=== PATIENT | male | born 1970 | race Caucasian/White ===

== ENCOUNTER → 2016-04-16 | Outpatient (CLI) | payer OTHER ==
[2016-04-16 11:03] LABS: MEAN CORPUSCULAR HEMOGLOBIN 30.4 pg (27.0-33.0); MEAN CORPUSCULAR HGB CONC 32.4 g/dl (32.0-36.5); MEAN CORPUSCULAR VOLUME 93.8 fl (80.0-96.0); PLATELET COUNT, AUTOMATED 270 k/mm3 (150-450); RED CELL DISTRIBUTION WIDTH 12.8 % (11.5-14.5); WHITE BLOOD COUNT 10.9 K/mm3 (4.0-10.0)
[2016-04-16 11:12] LABS: ALBUMIN 3.8 GM/DL (3.2-5.2); ALBUMIN/GLOBULIN RATIO 1.31 (1.00-1.93); ALKALINE PHOSPHATASE 112 U/L (45-117); ALT/SGPT 27 U/L (12-78); ANION GAP 8 MEQ/L (8-16); AST/SGOT 23 U/L (15-37); BILIRUBIN,TOTAL 0.4 MG/DL (0.2-1.0); BLOOD UREA NITROGEN 18 MG/DL (7-18); CALCIUM LEVEL 8.4 MG/DL (8.5-10.1); CARBON DIOXIDE LEVEL 24 MEQ/L (21-32); CHLORIDE LEVEL 106 MEQ/L (98-107); CREATININE FOR GFR 1.17 MG/DL (0.70-1.30); GLOMERULAR FILTRATION RATE > 60.0 (>60); GLUCOSE, FASTING 86 MG/DL (70-105); POTASSIUM SERUM 4.7 MEQ/L (3.5-5.1); SODIUM LEVEL 138 MEQ/L (136-145); TOTAL PROTEIN 6.7 GM/DL (6.4-8.2)
[2016-04-16 11:37] LABS: ERYTHROCYTE SEDIMENTATION RATE 7 mm/hr (0-15)
[2016-04-16 11:40] LABS: EOSINOPHILS 1 % (0-5)
--- NOTE | 2016-04-16 14:37 | REP ---
AP supine KUB 04/16/2016 Indication: generalized abdominal pain Comparison: None Findings: Two supine KUBs were obtained to include the abdomen and entire pelvis and field of view . There is a large amount of diffuse retained colonic stool with mild sparing of the rectosigmoid colon. 4 mm calculus is seen superior to the left L3 transverse process. There are two small left lower pelvic calculi. These could represent phleboliths or possibly ureteral calcifications air. The bones are normal in appearance Impression: Large amount of retained stool/constipation throughout the colon with some mild sparing of the rectosigmoid colon. Three small calcifications with in the left side of the abdomen and pelvis. These are nonspecific and may represent phleboliths, vascular or ureteral calcifications. Clinical follow-up recommended. Signed by Angie Nair MD 04/16/2016 09:24 A
== END ==
LOC: M WUC 08:55
PROVIDERS: ATTEND Physician Assistant
DX: R10.84 Generalized abdominal pain (principal)

== ENCOUNTER → 2016-04-16 | Outpatient (REF) | payer OTHER | LOC: M LAB REF 12:33 | PROVIDERS: ATTEND Physician Assistant | DX: R10.84 Generalized abdominal pain (principal) ==

== ENCOUNTER → 2016-04-16 | Outpatient (CLI) | payer OTHER ==
[~2016-04-16] MED LIST: GASTROGRAFIN SOLUTION 30ML (Q9963) As Ordered ONE; ISOVUE-370 76% 100ML VIAL (Q9967) As Ordered ONE
--- NOTE | 2016-04-16 14:42 | REP ---
CT abdomen pelvis on 06/[address] abdomen without IV contrast, CT abdomen pelvis following IV and oral contrast administration Technique: After drinking two cups of oral contrast each containing 10 ml gastrographin in 290 ml water, 3 mm spiral axial sections were performed of the abdomen. Following IV injection L Isovue 370 mg/ml, 3 mm spiral axial sections performed through abdomen and pelvis Findings: Small amount of dependent atelectasis in lung bases bilaterally. Liver, spleen, pancreas, gallbladder, adrenal glands are normal. There is mild left hydronephrosis with proximal hydroureter secondary to an obstructing 6 mm calculus within the left ureter at the level of the mid body of L3. There is minimal left perinephric stranding and minimally delayed left nephrogram. There is a 4 mm cyst in lateral mid pole left kidney. Kidneys are without hydro nephrosis. Stomach, small bowel, terminal ileum, and appendix are normal. Abdominal aorta is of normal course and caliber. There is no retroperitoneal adenopathy. Bladder is contracted. Prostate is normal. Focal area of mild mural thickening and narrowing is seen within the proximal descending colon as seen on image 4 6-54, series 301. There is moderate retained colonic stool. There is no free air or ascites Impression: 1. Mild left hydronephrosis and proximal left hydroureter secondary to an obstructing 6 mm calculus within the left ureter at the level of the mid body of L3. 2. Focal segmental area of mural thickening and narrowing within the descending colon may be secondary to spasm and less likely fixed narrowing. Consider follow-up colonoscopy in further evaluation Signed by Angie Nair MD 04/16/2016 01:03 P
== END ==
LOC: M RAD 10:44
PROVIDERS: ATTEND Physician Assistant
DX: N13.1 Hydronephrosis with ureteral stricture, not elsewhere classified (principal)
CPT/HCPCS: 74178; Q9963; Q9967

== ENCOUNTER → 2016-04-25 | Outpatient (REF) | payer OTHER | LOC: M SMT 12:58 | PROVIDERS: ATTEND Nurse Practitioner Family | DX: N20.1 Calculus of ureter (principal) ==

== ENCOUNTER → 2016-05-21 | Outpatient (CLI) | payer OTHER ==
[2016-05-21 13:51] LABS: CALCIUM LEVEL 8.7 MG/DL (8.5-10.1); CREATININE FOR GFR 1.65 MG/DL (0.70-1.30); POTASSIUM SERUM 4.9 MEQ/L (3.5-5.1)
[2016-05-21 14:05] LABS: INR 0.97
[2016-05-21 14:14] LABS: MEAN CORPUSCULAR HEMOGLOBIN 30.2 pg (27.0-33.0); MEAN CORPUSCULAR HGB CONC 32.3 g/dl (32.0-36.5); MEAN CORPUSCULAR VOLUME 93.4 fl (80.0-96.0); RED CELL DISTRIBUTION WIDTH 12.9 % (11.5-14.5); WHITE BLOOD COUNT 9.6 K/mm3 (4.0-10.0)
== END ==
LOC: M SMT 09:07
PROVIDERS: ATTEND Nurse Practitioner Family
DX: N20.0 Calculus of kidney (principal)

== ENCOUNTER → 2016-05-27 | Day surgery (SDC) | payer OTHER ==
[~2016-05-27] VITALS: Ht 182.9 cm; Wt 75.7 kg
[~2016-05-27] MED LIST changes: +CALC600T7 PO; +CONRAY-60 60% 50ML VIAL (Q9961) As Ordered ONE; +CONRAY-60 60% 50ML VIAL (Q9961) XX ONE; +EXCETAB80 PO; -GASTROGRAFIN SOLUTION 30ML (Q9963) As Ordered ONE; +IBUP-1114 PO; -ISOVUE-370 76% 100ML VIAL (Q9967) As Ordered ONE; +LIDOCAINE 2% INJ 100 MG/5 ML SDV (FOR ANES.) As Ordered ONE; +LR 1,000 ML IV SCH; +MIDAZOLAM INJ 2 MG/2 ML VIAL (J2250) As Ordered ONE; +ONDANSETRON 4MG/2ML VIAL (J2405) As Ordered ONE; +ONDANSETRON 4MG/2ML VIAL (J2405) IV PRN; +OXYC1TAB23 PO; +PAME10CA PO; +PERCOCET 5MG/325MG TAB PO PRN; +PRIM250T5 PO; +PROPOFOL 200 MG/20 ML VIAL As Ordered ONE; +TRAM50TA2 PO; +VARE1TA PO; +ZONI100C2 PO; +ZONI25CA2 PO; +dexameTHASONE 4 MG/ML 1ML VIAL (J1100) As Ordered ONE; +ePHEDrine SULFATE 25 MG/5 ML(5MG/ML) SYRINGE As Ordered ONE; +fentaNYL 100 MCG/2 ML INJECTION (J3010) IV PRN; +fentaNYL 250 MCG/5 ML INJECTION (J3010) As Ordered ONE
--- NOTE | 2016-05-27 15:16 | REP ---
Clinical: Retrograde pyelogram. Technique: Intraoperative fluoroscopic imaging. Findings: Two intraoperative fluoroscopic images demonstrate satisfactory placement for left ureteral stent. Total fluoroscopic time 8 seconds. Impression: Status post left ureteral stent. Signed by Drew Diego MD 05/27/2016 03:07 P
[2016-05-27 16:27] VITALS: BP 138/76
--- NOTE | 2016-05-27 18:38 | RO ---
DATE OF PROCEDURE: 05/27/2016 PREPROCEDURE DIAGNOSIS: Left ureteral stone. POSTPROCEDURE DIAGNOSIS: Left ureteral stone. PROCEDURE: Cystoscopy, left ureteroscopy, basket extraction of stone, left retrograde pyelogram, and intraoperative interpretation of images, left ureteral stent placement. SURGEON: Pal Tee MD ROCK DUSTER: None. ANESTHESIA: General. OPERATIVE INDICATIONS: This is a 45-year-old male who recently was found to have an obstructing 4 mm proximal left ureteral stone. He was given time to try to pass the stone and his pain persisted. I therefore, recommended he be brought to the operating room today for the above listed procedure. DESCRIPTION OF PROCEDURE: The patient was brought to the operating room and general anesthesia was induced. Prophylactic antibiotics were infused. He was then placed in the dorsal lithotomy position and prepped and draped in the usual sterile fashion. A rigid cystoscope was then inserted into the ureteral meatus and advanced in to the bladder. Once within the bladder, A guidewire was advanced up the left collecting system. This wire was then secured to the drape to serve as a safety wire. I then went up into the left collecting system with a short semirigid ureteroscope and within the distal left ureter a 4 mm stone was seen. It did appear to be somewhat impacted and there was scarring of the ureter in this area. I then grasped the stone with a basket and withdrew the stone from the left ureter. At this point a retrograde pyelogram was performed and it was notable for mild left hydronephrosis and no extravasation. When I withdrew the short semi rigid ureteroscope, I advanced a #6-Slovenian x 22-32 cm JJ ureteral stent over the wire up into the left collecting system. The wire was then removed and there were adequate curls of the stent in the left renal pelvis and in the bladder. The bladder was then emptied of all fluid and this marked the conclusion of the procedure. The patient was then taken out of the dorsal lithotomy position and awakened from anesthesia and transported to the recovery room in stable condition. ESTIMATED BLOOD LOSS: 0 mL INTRAOPERATIVE COMPLICATIONS: None. SPECIMENS: Left ureteral stone. PLAN: The patient will be brought back to be seen in the clinic in approximately one week for stent removal. BHARAT
[2016-06-04 00:06] LABS: Size 4x4x2 mm (.)
== END | disposition home or self-care (01) ==
LOC: M SDC 11:40
PROVIDERS: ATTEND Urology
DX: N20.1 Calculus of ureter (principal); G25.0 Essential tremor; G43.909 Migraine, unspecified, not intractable, without status migrainosus; F17.290 Nicotine dependence, other tobacco product, uncomplicated; G47.33 Obstructive sleep apnea (adult) (pediatric); Z79.899 Other long term (current) drug therapy
CPT/HCPCS: 52332; 52352; 74420; 82360; 88300; C1726; C1769; C1894; C2617; J0690; J1100; J2250; J2405; J3010; Q9961

== ENCOUNTER 2016-11-02 05:56 | Inpatient (IN) | payer OTHER ==
[~2016-11-02] VITALS: Ht 182.9 cm; Wt 81.1 kg
[~2016-11-02 05:56] MED LIST changes: -CONRAY-60 60% 50ML VIAL (Q9961) As Ordered ONE; -CONRAY-60 60% 50ML VIAL (Q9961) XX ONE; -LIDOCAINE 2% INJ 100 MG/5 ML SDV (FOR ANES.) As Ordered ONE; -LR 1,000 ML IV SCH; -MIDAZOLAM INJ 2 MG/2 ML VIAL (J2250) As Ordered ONE; -ONDANSETRON 4MG/2ML VIAL (J2405) As Ordered ONE; -ONDANSETRON 4MG/2ML VIAL (J2405) IV PRN; -PERCOCET 5MG/325MG TAB PO PRN; -PRIM250T5 PO; +PRIM250T8 PO; -PROPOFOL 200 MG/20 ML VIAL As Ordered ONE; -dexameTHASONE 4 MG/ML 1ML VIAL (J1100) As Ordered ONE; -ePHEDrine SULFATE 25 MG/5 ML(5MG/ML) SYRINGE As Ordered ONE; -fentaNYL 100 MCG/2 ML INJECTION (J3010) IV PRN; -fentaNYL 250 MCG/5 ML INJECTION (J3010) As Ordered ONE
[2016-11-02] MEDS ORDERED: HYDR-3713 PO ×2 (06:09→11:35)
[2016-11-02 07:21] LABS: BASO % 0.5 % (0.0-1.0); EOS # 0.3 K/mm3 (0.0-0.50); EOS % 3.6 % (0.0-3.0); LARGE UNSTAINED CELL # 0.1 K/mm3 (0.0-0.4); LARGE UNSTAINED CELL % 1.9 % (0.0-4.0); LYMPH % 25.2 % (24.0-44.0); MEAN CORPUSCULAR HEMOGLOBIN 31.3 pg (27.0-33.0); MEAN CORPUSCULAR VOLUME 91.9 fl (80.0-96.0); MONO # 0.4 K/mm3 (0.0-0.8); MONO % 5.8 % (0.0-5.0); NEUTROPHILS # 4.6 K/mm3 (1.8-7.7); PLATELET COUNT, AUTOMATED 283 k/mm3 (150-450); RED CELL DISTRIBUTION WIDTH 13.1 % (11.5-14.5); WHITE BLOOD COUNT 7.3 K/mm3 (4.0-10.0)
[2016-11-02 07:45] LABS: ALBUMIN 3.4 GM/DL (3.2-5.2); ALBUMIN/GLOBULIN RATIO 1.17 (1.00-1.93); ALKALINE PHOSPHATASE 124 U/L (45-117); ALT/SGPT 29 U/L (12-78); ANION GAP 7 MEQ/L (8-16); AST/SGOT 17 U/L (15-37); BILIRUBIN,DIRECT 0.1 MG/DL (0.0-0.2); BILIRUBIN,TOTAL 0.5 MG/DL (0.2-1.0); BLOOD UREA NITROGEN 15 MG/DL (7-18); CALCIUM LEVEL 8.5 MG/DL (8.5-10.1); CARBON DIOXIDE LEVEL 21 MEQ/L (21-32); CHLORIDE LEVEL 109 MEQ/L (98-107); CREATININE FOR GFR 0.92 MG/DL (0.70-1.30); GLOMERULAR FILTRATION RATE > 60.0 (>60); GLUCOSE, FASTING 89 MG/DL (70-105); SODIUM LEVEL 137 MEQ/L (136-145); TOTAL PROTEIN 6.3 GM/DL (6.4-8.2)
[2016-11-02] MEDS ORDERED: ASPIRIN 81 MG CHEW TABLET PO ONE (08:00)
[2016-11-02] MEDS ORDERED: ISOVUE-370 76% 100ML VIAL (Q9967) As Ordered ONE (08:54)
--- NOTE | 2016-11-02 10:00 | REP ---
CT ANGIOGRAM OF THE CHEST: TECHNIQUE: Axial contrast enhanced images from the thoracic inlet to the upper abdomen using 100 mL Isovue 370 intravenous contrast material with multiplanar reformations. There are multiple bilateral pulmonary emboli seen in segmental branches involving all lobes. No mediastinal or hilar adenopathy is seen. There is no pleural or pericardial effusion. The heart is gauri in size. There is no thoracic aortic aneurysm or dissection. There are patchy areas of atelectasis or infiltrate in each lower lobe with mild hazy alveolar opacity peripherally in the right upper lobe as well. Visualized upper abdominal structures are unremarkable. IMPRESSION: Multiple bilateral pulmonary emboli. Bibasilar atelectasis/infiltrate. Signed by Vazquez Vigil MD 11/02/2016 03:19 P
--- NOTE | 2016-11-02 10:02 | REP ---
CHEST, TWO VIEWS: Two views of the chest are performed. There is mild streaky bibasilar atelectasis/infiltrate. Heart is normal in size. Mediastinal silhouette is unremarkable. Visualized osseous structures are intact. IMPRESSION: Mild streaky bibasilar atelectasis/infiltrate. Signed by Vazquez Vigil MD 11/02/2016 03:19 P
[2016-11-02] MEDS ORDERED: PRIM250T8 PO (11:35)
[2016-11-02] MEDS ORDERED: ZONI100C2 PO (11:35)
[2016-11-02] MEDS ORDERED: IBUP80TA PO (11:35)
[2016-11-02] MEDS ORDERED: ENOXAPARIN 80 MG/0.8 ML SYRINGE (J1650) SC SCH (12:00)
[2016-11-02] MEDS ORDERED: PERCOCET 5MG/325MG TAB PO PRN (12:15)
[2016-11-02] MEDS ORDERED: ACETAMINOPHEN TAB 650MG DOSE (2X325MG) PO PRN (12:15)
[2016-11-02] MEDS: ENOXAPARIN 80 MG/0.8 ML SYRINGE (J1650) SC SCH ×2 (12:51→23:30)
--- NOTE | 2016-11-02 13:31 | REP ---
Bilateral lower extremity Duplex Doppler venous ultrasound: Real time compression and duplex Doppler interrogation of the bilateral lower extremity deep venous system is performed. Bilaterally, the common femoral, superficial femoral and popliteal veins are fully compressible with transducer pressure and demonstrate normal spontaneous and phasic flow, without evidence of deep venous thrombosis. Impression: No evidence of deep venous thrombosis of the bilateral lower extremity femoral popliteal venous system. Signed by Vazquez Vigil MD 11/02/2016 01:23 P
[2016-11-02] MEDS ORDERED: NORCO, ANEXSIA 5/325MG TABLET (HYDROcodone/ACETAMINOPHEN) PO PRN (16:15)
[2016-11-02] MEDS ORDERED: IBUPROFEN 800 MG TAB PO PRN (16:15)
--- NOTE | 2016-11-02 16:45 | HPE ---
DATE OF ADMISSION: 11/02/2016 PRIMARY CARE PROVIDER: Meli Duggan. HISTORY OF PRESENT ILLNESS: This patient is a 45-year-old male with a past medical history significant for essential tremor, migraine, kidney stone, broken jaw, presented to [facility] on 11/02/2016, for acute onset of chest pain. The pain started at the right chest around 11 p.m. yesterday, and it has been persistent. It is a crushing type of pain, and the pain would radiate to the right shoulder blade. Nothing makes it better, and when the pain is in the most severe state, he cannot take any deep breath. Pain never happened before. ALLERGIES: No known drug allergies. PAST MEDICAL HISTORY: 1. Essential tremor. 2. Migraines. 3. Kidney stone. PAST SURGICAL HISTORY: 1. Right shoulder repair and left wrist repair. 2. Vasectomy. SOCIAL HISTORY: The patient smokes a half pack daily for 20 years. Rarely drinks alcoholic beverages. Denies any recreational drug use. The patient is a siding applicator. REVIEW OF SYSTEMS: GENERAL: No fever, no chill. HEENT: No vision changes, no auditory changes. CARDIOVASCULAR: Severe right-sided chest pain with radiation to the right shoulder blade, and persistent. RESPIRATORY: No difficulty breathing. No cough or sputum production. GASTROINTESTINAL (GI): No nausea, no vomiting or abdominal pain. No diarrhea. NEUROLOGIC: No numbness, no tingling. OBJECTIVE: VITAL SIGNS: Temperature 97.6, pulse is 62, respiration rate is 16, blood pressure is 112/72. Pulse oximetry 95% on room air. GENERAL: No sign of acute distress. Alert and oriented times three. HEENT: Normocephalic, atraumatic. Extraocular motor grossly intact. CARDIOVASCULAR: Positive S1, S2. Regular rate. LUNGS: Clear to auscultation bilaterally. ABDOMEN: Soft, nontender, nondistended. Bowel sounds present. EXTREMITIES: No edema, no calf tenderness. NEUROLOGIC: Sensation to fine touch grossly intact. Muscle strength 5/5. LABORATORY DATA: WBC 7.3, hemoglobin 13.6, hematocrit 39.8, platelet count 283. Sodium is 137. Potassium four, chloride 109, carbon dioxide 21, BUN 15, creatinine 0.92, GFR greater than 60, fasting glucose 89, calcium 8.5, total bilirubin 0.5, direct bilirubin is 0.1, AST 17, ALT 29, alkaline phosphatase 124. Total CK is 122, troponin I less than 0.02. Total protein 6.3, albumin 3.4, lipase is 118. TSH is 1.02. IMAGING: Chest x-ray shows mild streaky bilateral atelectasis/infiltrate. CT angiogram shows multiple bilateral pulmonary emboli. Bilateral atelectasis/infiltrate. Bilateral lower extremity deep venous thrombosis (DVT) shows no evidence of DVT. ASSESSMENT AND PLAN: 1. Bilateral pulmonary emboli. The patient is admitted to the progressive care unit (PCU) under inpatient status. The patient is started on Lovenox 80 mg subcutaneous every 12 hours. 2. Essential tremor. Continue on primidone 125 mg by mouth twice a day. 3. History of migraine, stable. 4. History of kidney stone. 5. Left-sided broken jaw, occurred when patient had dental teeth extraction. 6. Deep venous thrombosis (DVT) prophylaxis. Currently the patient is on therapeutic Lovenox for his bilateral pulmonary emboli (PE).
[2016-11-02 16:55] VITALS: BP 122/72
--- NOTE | 2016-11-02 20:07 | ECGEPIP ---
Stationary ECG Study [facility] - ED Test Date: 2016-11-02 Pat Name: MICHELLE COOMBS Department: Room: - Gender: M Production Zone Leader: andrés : 1970 Requested By: SAGAR Taylor Order Number: [id number] Reading MD: Era Marshall Measurements Intervals [place] Rate: 67 P: 67 TN: 154 QRS: 69 QRSD: 88 T: 49 QT: 399 QTc: 423 Interpretive Statements SINUS RHYTHM NSTTW ABNORMALITY NO PRIOR FOR COMPARISON Electronically Signed On 11-02-2016 20:07:05 EDT by Era Marshall
[2016-11-02 20:08] VITALS: BP 115/68
[2016-11-02] MEDS: PRIMIDONE 125MG PER 1/2 TABLET PO SCH (21:44)
[2016-11-02 23:28] VITALS: BP 115/71
[2016-11-03 03:23] VITALS: BP 99/59
[2016-11-03 03:25] VITALS: BP 117/59
[2016-11-03 07:49] LABS: MEAN CORPUSCULAR HEMOGLOBIN 31.4 pg (27.0-33.0); MEAN CORPUSCULAR HGB CONC 34.1 g/dl (32.0-36.5); MEAN CORPUSCULAR VOLUME 92.2 fl (80.0-96.0); RED CELL DISTRIBUTION WIDTH 12.8 % (11.5-14.5); WHITE BLOOD COUNT 7.4 K/mm3 (4.0-10.0)
[2016-11-03 08:00] VITALS: BP 126/76
[2016-11-03 08:18] LABS: ANION GAP 4 MEQ/L (8-16); BLOOD UREA NITROGEN 16 MG/DL (7-18); CALCIUM LEVEL 8.6 MG/DL (8.5-10.1); CARBON DIOXIDE LEVEL 27 MEQ/L (21-32); CHLORIDE LEVEL 110 MEQ/L (98-107); GLOMERULAR FILTRATION RATE > 60.0 (>60); GLUCOSE, FASTING 90 MG/DL (70-105); POTASSIUM SERUM 4.2 MEQ/L (3.5-5.1); SODIUM LEVEL 141 MEQ/L (136-145)
[2016-11-03] MEDS: PRIMIDONE 125MG PER 1/2 TABLET PO SCH ×2 (08:31→20:53)
--- NOTE | 2016-11-03 10:45 | ECHO ---
DATE OF PROCEDURE: 11/02/2016 DATE OF : 1970 AGE: 45 REFERRING PROVIDER: Dr. Martinez. PATIENT LOCATION: Emergency room. REASON FOR ECHOCARDIOGRAM: Pulmonary embolism. 2D MEASUREMENTS: IVS: 0.9 cm LV: 4.8 cm LVPW: 0.9 cm LA: 3.3 cm Aorta: 3.0 cm IVC: 1.6 cm DOPPLER MEASUREMENTS: Mitral E: 0.70 Mitral A: 0.63 Ratio 1.1 2D COMMENTS: 1. Technically limited study due to poor acoustic window secondary to lung interference. 2. Normal left ventricular size, wall thickness and normal global left ventricular systolic function. The estimated left ventricular systolic ejection fraction is 65% to 70%. 3. Normal left atrium. The right atrium appeared to be normal in size. The right ventricle free wall was not well visualized. 4. The atrial septum appeared to be normal without evidence of defect or shunt. 5. Normal aortic root. 6. No pericardial effusion seen. 7. The aortic valve, mitral valve, and tricuspid valve appeared to be normal. The pulmonic valve and proximal pulmonary artery branches were not well visualized. 8. The inferior vena cava was normal in size, central venous pressure is most likely normal. DOPPLER: No significant valvular abnormality is detected but trace mitral regurgitation. IMPRESSION: 1. Normal global left ventricular systolic function. Not mentioned above, left ventricular diastolic function also appears to be normal. 2. Trace mitral regurgitation. 3. The study was technically limited due to poor acoustic window secondary to lung interference. MTDD
[2016-11-03] MEDS ORDERED: SLF 3 ML SYR IV PRN (11:00)
[2016-11-03] MEDS: ENOXAPARIN 80 MG/0.8 ML SYRINGE (J1650) SC SCH (11:15)
[2016-11-03 12:00] VITALS: BP 111/67
[2016-11-03] MEDS: SLF 3 ML SYR IV SCH ×2 (12:03→20:55)
[2016-11-03 16:00] VITALS: BP 112/61
--- NOTE | 2016-11-03 19:52 | IPN ---
DATE: 11/03/2016 SUBJECTIVE: Patient seen and examined in the room today. Patient stated he now has pleuritic chest pain of the right chest. He cannot take a deep breath because that will trigger the pleuritic pain. Otherwise, he does not have any acute complaints. No overnight events reported. OBJECTIVE: VITAL SIGNS: Temperature 98.1, pulse is 69, respirations 18, blood pressure 126/76, pulse oximetry 92% on room air. GENERAL: No signs of acute distress. Alert and oriented times three. HEENT: Normocephalic, atraumatic. Extraocular motor grossly intact. CARDIOVASCULAR: Positive S1, S2. Regular rate. LUNGS: Clear to auscultation bilaterally. ABDOMEN: Soft, nontender, nondistended. Bowel sounds present. No rebound. No guarding. EXTREMITIES: No edema. No signs of cyanosis. LABORATORY DATA: WBC 7.4, hemoglobin 14.1, hematocrit 41.3, platelet count is 281. Sodium 141, potassium 4.2, chloride 110, carbon dioxide 27, BUN 16, creatinine 0.9, GFR greater than 60, fasting glucose 90, calcium 8.6. ASSESSMENT AND PLAN: 1. Bilateral pulmonary embolism. Patient is monitored on the progressive care unit (PCU) for telemetry. Patient started on a full dose of Lovenox. Therapeutic range every 12 hours. Will work with the social scientist for possible Lovenox preauthorization. Will also proceed with a hypercoagulable workup. Cardiac echocardiogram was performed. Waiting for the final report. Lower extremity deep venous thrombosis (DVT) Doppler is negative. 2. Essential tremor. Continue primidone 125 mg by mouth twice a day. 3. History of migraine. Stable. 4. History of kidney stones. 5. Left-sided broken jaw occurred when patient had a dental extraction. 6. Deep venous thrombosis (DVT) prophylaxis. Currently, patient is on therapeutic dose of Lovenox for his pulmonary embolism (PE).
[2016-11-03 20:17] VITALS: BP 128/74
[2016-11-04 00:22] VITALS: BP 111/68
[2016-11-04] MEDS: ENOXAPARIN 80 MG/0.8 ML SYRINGE (J1650) SC SCH (00:28)
[2016-11-04] MEDS: SLF 3 ML SYR IV SCH (04:19)
[2016-11-04 04:22] VITALS: BP 129/69
[2016-11-04 06:03] LABS: MEAN CORPUSCULAR HEMOGLOBIN 31.3 pg (27.0-33.0); MEAN CORPUSCULAR HGB CONC 33.9 g/dl (32.0-36.5); MEAN CORPUSCULAR VOLUME 92.5 fl (80.0-96.0); WHITE BLOOD COUNT 7.8 K/mm3 (4.0-10.0)
[2016-11-04 06:23] LABS: ANION GAP 4 MEQ/L (8-16); BLOOD UREA NITROGEN 15 MG/DL (7-18); CALCIUM LEVEL 8.5 MG/DL (8.5-10.1); CARBON DIOXIDE LEVEL 27 MEQ/L (21-32); CHLORIDE LEVEL 108 MEQ/L (98-107); CHOLESTEROL LEVEL 130 MG/DL (<200); CREATININE FOR GFR 0.94 MG/DL (0.70-1.30); GLOMERULAR FILTRATION RATE > 60.0 (>60); GLUCOSE, FASTING 93 MG/DL (70-105); POTASSIUM SERUM 4.1 MEQ/L (3.5-5.1); SODIUM LEVEL 139 MEQ/L (136-145); TRIGLYCERIDES LEVEL 65 MG/DL (<150)
[2016-11-04 07:59] VITALS: BP 118/76
[2016-11-04] MEDS: PRIMIDONE 125MG PER 1/2 TABLET PO SCH (09:54)
[2016-11-04] MEDS ORDERED: ELIQ5TAB PO (09:59)
--- NOTE | 2016-11-07 18:15 | DSES ---
DATE OF ADMISSION: 11/02/2016 DATE OF DISCHARGE: 11/04/2016 PRIMARY CARE PROVIDER: Meli Duggan CONSULTANTS: None. PROCEDURES: None. COMPLICATIONS: None. ADMISSION/DISCHARGE DIAGNOSES: 1. Bilateral pulmonary embolism. 2. Essential tremor. 3. Migraines. 4. History of kidney stones. 5. Left-sided broken jaw. HOSPITALIZATION COURSE: The patient is a 45-year-old female who presented to [facility] on 11/02/2016 for severe right-sided chest pain. CT angiogram was performed. The patient was found to have bilateral pulmonary embolism, and the patient was admitted to the progressive care unit (PCU) for telemetry. The patient was started on the therapeutic dose of Lovenox. An cardiac echogram and anticoagulation workup is also being ordered. With anticoagulation, the patient's symptoms continued to improve and on 11/04/2016, the patient was determined medically stable for discharge with recommendation to followup with primary care provider in 1-2 weeks. OBJECTIVE: VITAL SIGNS: Temperature is 98.63, respirations 18, blood pressure is 118/76, pulse oximetry is 93% in room air. LABORATORY DATA: WBC is 7.8, hemoglobin 12.6, hematocrit 37.3, platelet count is 282. Sodium is 139, potassium 4.1, chloride is 108, carbon dioxide 27, BUN 15, creatinine is 0.94, GFR greater than 60, fasting glucose is 93, calcium is 8.5, total triglycerides 65, total cholesterol is 130, LDL is 80, HDL is 37. PT is 13.3, INR is 1. DISCHARGE MEDICATIONS: - Eliquis 10 mg by mouth twice a day for 5 days, then 5 mg by mouth twice a day for 5 days, then anticoagulation dose should be adjusted by the primary care provider - ibuprofen 800 mg by mouth every 6 hours as needed - primidone 125 mg by mouth twice a day - zonisamide 100 mg by mouth twice a day DISCHARGE INSTRUCTIONS: Discontinue lines. Discharge home. Activity as tolerated. Diet as tolerated. The patient is recommended to avoid strenuous exercise before evaluated by the primary care provider. The patient is currently on Eliquis dose adjustment. The patient was recommended to be evaluated by primary care provider to adjust the Eliquis dose, and the patient was also instructed to review the cardiac echogram results and anticoagulation workup with primary care provider. DISCHARGE TIME: Greater than 30 minutes. DISCHARGE CONDITION: Stable.
[2016-11-11 10:09] LABS: PROTEIN C ANTIGEN 107 % (60-150); PROTEIN S ANTIGEN FREE 78 % (57-157); PROTEIN S ANTIGEN TOTAL 147 % (60-150); SJOGREN'S ANTI SS-A <0.2 AI (0.0-0.9); SJOGREN'S ANTI SS-B <0.2 AI (0.0-0.9)
== END 2016-11-04 12:15 | disposition home or self-care (01) | DRG 176 ==
LOC: M ED 05:56 → M ED INP 12:15 → M PCU 16:40
PROVIDERS: ADMIT Internal Medicine; ATTEND Internal Medicine
DX: I26.99 Other pulmonary embolism without acute cor pulmonale (principal); G25.0 Essential tremor; G43.909 Migraine, unspecified, not intractable, without status migrainosus; F17.210 Nicotine dependence, cigarettes, uncomplicated; Z87.442 Personal history of urinary calculi; Z79.899 Other long term (current) drug therapy

== ENCOUNTER 2017-08-31 23:36 | Emergency (ER) | payer OTHER ==
[2017-09-01 00:44] LABS: BASO % 0.3 % (0.0-1.0); EOS # 0.4 10^3/uL (0.0-0.50); EOS % 3.3 % (0.0-3.0); HEMATOCRIT 40.5 % (42.0-52.0); HEMOGLOBIN 13.4 g/dl (13.5-17.5); IMMATURE GRANULOCYTE % 0.3 % (0-3.0); LYMPH # 3.9 10^3/uL (1.5-4.5); LYMPH % 33.1 % (24.0-44.0); MEAN CORPUSCULAR HEMOGLOBIN 30.6 pg (27.0-33.0); MEAN CORPUSCULAR HGB CONC 33.1 g/dl (32.0-36.5); MEAN CORPUSCULAR VOLUME 92.5 fl (80.0-96.0); MONO % 8.4 % (0.0-5.0); NEUTROPHILS # 6.4 10^3/uL (1.8-7.7); NEUTROPHILS % 54.6 % (36.0-66.0); PLATELET COUNT, AUTOMATED 271 10^3/uL (150-450); RED BLOOD COUNT 4.38 10^6/uL (4.30-6.10); RED CELL DISTRIBUTION WIDTH 14.3 % (11.5-14.5); WHITE BLOOD COUNT 11.8 10^3/uL (4.0-10.0)
[2017-09-01 01:11] LABS: ALBUMIN 3.7 GM/DL (3.2-5.2); ALBUMIN/GLOBULIN RATIO 1.12 (1.00-1.93); ALKALINE PHOSPHATASE 153 U/L (45-117); ALT/SGPT 30 U/L (12-78); ANION GAP 5 MEQ/L (8-16); AST/SGOT 24 U/L (7-37); BILIRUBIN,DIRECT < 0.1 MG/DL (0.0-0.2); BILIRUBIN,TOTAL 0.3 MG/DL (0.2-1.0); BLOOD UREA NITROGEN 21 MG/DL (7-18); CALCIUM LEVEL 8.8 MG/DL (8.5-10.1); CARBON DIOXIDE LEVEL 26 MEQ/L (21-32); CHLORIDE LEVEL 112 MEQ/L (98-107); GLOMERULAR FILTRATION RATE 53.4 (>60); GLUCOSE, FASTING 97 MG/DL (70-100); LIPASE 118 U/L (73-393); POTASSIUM SERUM 4.3 MEQ/L (3.5-5.1); SODIUM LEVEL 143 MEQ/L (136-145)
[2017-09-01] MEDS: ONDANSETRON 4MG/2ML VIAL (J2405) IV (01:30)
[2017-09-01] MEDS: NS 1,000 ML IV (01:36)
[2017-09-01] MEDS: KETOROLAC 30 MG/ML VIAL (J1885) IV (01:36)
[2017-09-01 01:44] LABS: CALCIUM OXALATE CRYSTALS RFX MODERATE; KETONE, URINE AUTO RFX NEGATIVE (NEGATIVE); LEUKOCYTE ESTERASE UR AUTO RFX NEGATIVE (NEGATIVE); MUCUS, URINE RFX SMALL (NEGATIVE); NITRITE, URINE AUTO RFX NEGATIVE (NEGATIVE); RBC, URINE AUTO RFX TNTC /HPF (0-3); SPECIFIC GRAVITY UR AUTO RFX 1.021 (1.002-1.035); SQUAM EPITHELIAL CELL UR AURFX 0 /HPF (0-6); WBC, URINE AUTO RFX 1 /HPF (0-3)
[2017-09-01] MEDS: TAMSULOSIN 0.4 MG CAP PO (05:15)
[2017-09-01] MEDS: OXYCODONE/APAP 5MG/325MG(BULK FOR ED) 1 TABLET PO (05:30)
== END 2017-09-01 06:05 | disposition home or self-care (01) ==
LOC: M ED 23:36
DX: N20.1 Calculus of ureter (principal); R31.9 Hematuria, unspecified; G43.909 Migraine, unspecified, not intractable, without status migrainosus; G47.30 Sleep apnea, unspecified; Z87.442 Personal history of urinary calculi; F17.200 Nicotine dependence, unspecified, uncomplicated; Z79.899 Other long term (current) drug therapy
CPT/HCPCS: J2405

== ENCOUNTER → 2017-09-24 | Outpatient (CLI) | payer OTHER ==
[2017-09-24 09:43] LABS: HEMATOCRIT 46.3 % (42.0-52.0); HEMOGLOBIN 15.3 g/dl (13.5-17.5); MEAN CORPUSCULAR HEMOGLOBIN 31.2 pg (27.0-33.0); MEAN CORPUSCULAR VOLUME 94.5 fl (80.0-96.0); PLATELET COUNT, AUTOMATED 282 10^3/uL (150-450); RED CELL DISTRIBUTION WIDTH 14.8 % (11.5-14.5); WHITE BLOOD COUNT 13.4 10^3/uL (4.0-10.0)
[2017-09-24 09:49] LABS: AMORPHOUS SEDIMENT SMALL (NEGATIVE); APPEARANCE, URINE HAZY (CLEAR); BACTERIA, URINE AUTO NEGATIVE (NEGATIVE); BILIRUBIN, URINE AUTO NEGATIVE (NEGATIVE); BLOOD, URINE BLOOD NEGATIVE (NEGATIVE); COLOR, URINE YELLOW (YELLOW); GLUCOSE, URINE (UA) AUTO NEGATIVE (NEGATIVE); KETONE, URINE AUTO NEGATIVE (NEGATIVE); LEUKOCYTE ESTERASE, URINE AUTO NEGATIVE (NEGATIVE); NITRITE, URINE AUTO NEGATIVE (NEGATIVE); PROTEIN, URINE AUTO NEGATIVE (NEGATIVE); RBC, URINE AUTO 1 /HPF (0-3); SPECIFIC GRAVITY URINE AUTO 1.012 (1.002-1.035); SQUAMOUS EPITHELIAL CELL UR AU 0 /HPF (0-6); UROBILINOGEN, URINE AUTO 0.2 mg/dL (0.0-2.0); WBC, URINE AUTO 2 /HPF (0-3)
[2017-09-24 09:59] LABS: INR 0.92; PROTHROMBIN TIME 12.4 SECONDS (12.4-14.5)
[2017-09-24 10:00] LABS: PARTIAL THROMBOPLASTIN TIME 29.3 SECONDS (26.8-37.9)
[2017-09-24 10:11] LABS: ANION GAP 7 MEQ/L (8-16); BLOOD UREA NITROGEN 16 MG/DL (7-18); CALCIUM LEVEL 8.9 MG/DL (8.5-10.1); CARBON DIOXIDE LEVEL 26 MEQ/L (21-32); CHLORIDE LEVEL 108 MEQ/L (98-107); CREATININE FOR GFR 1.05 MG/DL (0.70-1.30); GLOMERULAR FILTRATION RATE > 60.0 (>60); GLUCOSE, FASTING 75 MG/DL (70-100); POTASSIUM SERUM 4.2 MEQ/L (3.5-5.1); SODIUM LEVEL 141 MEQ/L (136-145)
== END ==
LOC: M SMT 08:06
DX: Z01.818 Encounter for other preprocedural examination (principal); N20.0 Calculus of kidney
CPT/HCPCS: 80048

== ENCOUNTER → 2017-10-16 | Day surgery (SDC) | payer OTHER ==
[~2017-10-16] MED LIST changes: -CALC600T7 PO; -EXCETAB80 PO; -IBUP-1114 PO; +LIDOCAINE 2% INJ 100 MG/5 ML SDV (FOR ANES.) As Ordered; +LR 1,000 ML IV; +MEPERIDINE INJ 25 MG/ML VIAL (J2175) IV; +METOCLOPRAMIDE INJ 10MG/2ML VIAL (J2765) IV; +MIDAZOLAM INJ 2 MG/2 ML VIAL (J2250) As Ordered; +ONDANSETRON 4MG/2ML VIAL (J2405) As Ordered; +ONDANSETRON 4MG/2ML VIAL (J2405) IV; -OXYC1TAB23 PO; -PAME10CA PO; +PERCOCET 5MG/325MG TAB PO; -PRIM250T8 PO; +PROPOFOL 200 MG/20 ML VIAL As Ordered; -TRAM50TA2 PO; -VARE1TA PO; -ZONI100C2 PO; -ZONI25CA2 PO; +dexameTHASONE 4 MG/ML 1ML VIAL (J1100) As Ordered; +ePHEDrine SULFATE 25 MG/5 ML(5MG/ML) SYRINGE As Ordered; +fentaNYL 100 MCG/2 ML INJECTION (J3010) IV; +fentaNYL 250 MCG/5 ML INJECTION (J3010) As Ordered
[2017-10-16] MEDS: CONRAY-60 60% 50ML VIAL (Q9961) As Ordered (13:20)
[2017-10-16] MEDS: PERCOCET 5MG/325MG TAB PO (15:15)
== END | disposition home or self-care (01) ==
LOC: M SDC 11:03
DX: N13.30 Unspecified hydronephrosis (principal); Z87.442 Personal history of urinary calculi; G43.909 Migraine, unspecified, not intractable, without status migrainosus; G47.30 Sleep apnea, unspecified; G25.0 Essential tremor; R21 Rash and other nonspecific skin eruption; Z79.899 Other long term (current) drug therapy; Z86.711 Personal history of pulmonary embolism; Z72.0 Tobacco use; Z87.81 Personal history of (healed) traumatic fracture; Z86.69 Personal history of other diseases of the nervous system and sense organs
CPT/HCPCS: 52332

== ENCOUNTER → 2018-09-08 | Outpatient (REF) | payer OTHER ==
[~2018-09-08] MED LIST changes: +CALC600T7 PO; +ELIQ5TAB PO; +EXCETAB80 PO; +FLOM0.4C39 PO; +HYDR-3713 PO; +IBUP-1114 PO; +IBUP80TA PO; -LIDOCAINE 2% INJ 100 MG/5 ML SDV (FOR ANES.) As Ordered; -LR 1,000 ML IV; -MEPERIDINE INJ 25 MG/ML VIAL (J2175) IV; -METOCLOPRAMIDE INJ 10MG/2ML VIAL (J2765) IV; -MIDAZOLAM INJ 2 MG/2 ML VIAL (J2250) As Ordered; -ONDANSETRON 4MG/2ML VIAL (J2405) As Ordered; -ONDANSETRON 4MG/2ML VIAL (J2405) IV; +OXYC1TAB23 PO; +PAME10CA PO; +PERC5TAB12 PO; -PERCOCET 5MG/325MG TAB PO; +PRIM250T8 PO; -PROPOFOL 200 MG/20 ML VIAL As Ordered; +TRAM50TA2 PO; +VARE1TA PO; +ZONI100C2 PO; +ZONI25CA2 PO; -dexameTHASONE 4 MG/ML 1ML VIAL (J1100) As Ordered; -ePHEDrine SULFATE 25 MG/5 ML(5MG/ML) SYRINGE As Ordered; -fentaNYL 100 MCG/2 ML INJECTION (J3010) IV; -fentaNYL 250 MCG/5 ML INJECTION (J3010) As Ordered
[2018-09-08 12:02] LABS: BASO % 0.4 % (0.0-1.0); EOS # 0.2 10^3/uL (0.0-0.50); EOS % 2.2 % (0.0-3.0); HEMATOCRIT 41.9 % (42.0-52.0); HEMOGLOBIN 14.1 g/dl (13.5-17.5); LYMPH # 2.2 10^3/uL (1.5-4.5); LYMPH % 32.6 % (24.0-44.0); MEAN CORPUSCULAR HEMOGLOBIN 31.3 pg (27.0-33.0); MEAN CORPUSCULAR HGB CONC 33.7 g/dl (32.0-36.5); MEAN CORPUSCULAR VOLUME 93.1 fl (80.0-96.0); MONO # 0.5 10^3/uL (0.0-0.8); MONO % 7.6 % (0.0-5.0); NEUTROPHILS # 3.9 10^3/uL (1.8-7.7); NEUTROPHILS % 56.9 % (36.0-66.0); PLATELET COUNT, AUTOMATED 278 10^3/uL (150-450); WHITE BLOOD COUNT 6.9 10^3/uL (4.0-10.0)
[2018-09-08 12:55] LABS: ALBUMIN 3.5 GM/DL (3.2-5.2); ALT/SGPT 27 U/L (12-78); BILIRUBIN,TOTAL 0.3 MG/DL (0.2-1.0); BLOOD UREA NITROGEN 15 MG/DL (7-18); CALCIUM LEVEL 8.2 MG/DL (8.5-10.1); CARBON DIOXIDE LEVEL 24 MEQ/L (21-32); CHLORIDE LEVEL 108 MEQ/L (98-107); CREATININE FOR GFR 1.04 MG/DL (0.70-1.30); GLOMERULAR FILTRATION RATE > 60.0 (>60); GLUCOSE, FASTING 82 MG/DL (70-100); POTASSIUM SERUM 4.2 MEQ/L (3.5-5.1); RHEUMATOID FACTOR QUANT < 10.0 IU/ML (<15.0); SODIUM LEVEL 141 MEQ/L (136-145); TOTAL PROTEIN 6.8 GM/DL (6.4-8.2)
[2018-09-09 14:11] LABS: ANTINUCLEAR ANTIBODIES DIRECT Negative (Negative)
== END ==
LOC: M LABDRAW1 11:33
PROVIDERS: ATTEND Family Medicine
DX: R21 Rash and other nonspecific skin eruption (principal)

== ENCOUNTER → 2020-01-07 | Outpatient (CLI) | payer SELFPAY ==
[~2020-01-07] MED LIST changes: +CALC-212 PO; -CALC600T7 PO; +ZONI100C17 PO; -ZONI100C2 PO; +ZONI25CA13 PO; -ZONI25CA2 PO
== END ==
LOC: M LABSMTC 09:35
PROVIDERS: ATTEND Pediatrics
DX: Z20.828 Contact with and (suspected) exposure to other viral communicable diseases (principal)

== ENCOUNTER → 2020-01-10 | Outpatient (CLI) | payer OTHER ==
[2020-01-10 09:48] LABS: BASO % 0.4 % (0.0-1.0); EOS # 0.2 10^3/uL (0.0-0.5); HEMATOCRIT 42.6 % (42.0-52.0); HEMOGLOBIN 14.3 g/dl (13.5-17.5); LYMPH # 2.6 10^3/uL (1.5-5.0); LYMPH % 34.4 % (24.0-44.0); MEAN CORPUSCULAR HEMOGLOBIN 31.2 pg (27.0-33.0); MEAN CORPUSCULAR HGB CONC 33.6 g/dl (32.0-36.5); MEAN CORPUSCULAR VOLUME 92.8 fl (80.0-96.0); MONO # 0.7 10^3/uL (0.0-0.8); MONO % 9.4 % (0.0-5.0); NEUTROPHILS % 53.4 % (36.0-66.0); PLATELET COUNT, AUTOMATED 298 10^3/uL (150-450); RED BLOOD COUNT 4.59 10^6/uL (4.30-6.10); WHITE BLOOD COUNT 7.6 10^3/uL (4.0-10.0)
[2020-01-10 10:20] LABS: ALBUMIN 3.8 GM/DL (3.2-5.2); ALT/SGPT 27 U/L (12-78); BILIRUBIN,TOTAL 0.3 MG/DL (0.2-1.0); BLOOD UREA NITROGEN 14 MG/DL (7-18); CALCIUM LEVEL 8.8 MG/DL (8.5-10.1); CARBON DIOXIDE LEVEL 26 MEQ/L (21-32); CHLORIDE LEVEL 109 MEQ/L (98-107); CHOLESTEROL LEVEL 177 MG/DL (<200); CHOLESTEROL RISK RATIO 3.765 (<5); CREATININE FOR GFR 0.98 MG/DL (0.70-1.30); GLOMERULAR FILTRATION RATE > 60.0 (>56); GLUCOSE, FASTING 94 MG/DL (70-100); HDL CHOLESTEROL 47 MG/DL (>40); LDL CHOLESTEROL 117 MG/DL (<100); NON-HDL-C 130 MG/DL; POTASSIUM SERUM 4.3 MEQ/L (3.5-5.1); SODIUM LEVEL 138 MEQ/L (136-145); TOTAL PROTEIN 6.9 GM/DL (6.4-8.2); TRIGLYCERIDES LEVEL 63 MG/DL (<150)
== END ==
LOC: M WUC 08:23
PROVIDERS: ATTEND Family Medicine
DX: Z00.00 Encounter for general adult medical examination without abnormal findings (principal)

== ENCOUNTER → 2020-12-15 | Outpatient (CLI) | payer OTHER ==
[~2020-12-15] MED LIST changes: +AIMO70IN2 PO
== END ==
LOC: M LABSMTC 09:35
PROVIDERS: ATTEND Anesthesiology
DX: Z01.812 Encounter for preprocedural laboratory examination (principal); Z11.52 Encounter for screening for COVID-19

== ENCOUNTER 2020-12-20 07:38 | Day surgery (SDC) | payer OTHER ==
[~2020-12-20] VITALS: Ht 182.9 cm; Wt 83.6 kg
[~2020-12-20 07:38] MED LIST changes: +LIDOCAINE 2% 100MG/5ML SDV (FOR ANES.) As Ordered ONE; +NS 1,000 ML IV ONE; +propofoL 200 MG/20 ML VIAL As Ordered ONE
--- NOTE | 2020-12-20 09:17 | ROOR ---
Patient Name: Jack Mcdonald Procedure Date: 12/20/2020 8:25 AM Date of : 1970 Age: 50 Room: [facility] Gender: Male Note Status: Finalized Procedure: Colonoscopy Indications: Screening for colorectal malignant neoplasm Providers: Wilfred Hamilton MD Referring MD: Meli Duggan MD Requesting Provider: Medicines: Monitored Anesthesia Care Complications: No immediate complications. Procedure: Pre-Anesthesia Assessment: - Prior to the procedure, a History and Physical was performed, and patient medications and allergies were reviewed. The patient is competent. The risks and benefits of the procedure and the sedation options and risks were discussed with the patient. All questions were answered and informed consent was obtained. Patient identification and proposed procedure were verified by the physician, the nurse and the anesthesiologist in the endoscopy suite. Mental Status Examination: alert and oriented. Airway Examination: normal oropharyngeal airway and neck mobility. Respiratory Examination: clear to auscultation. CV Examination: normal. Prophylactic Antibiotics: The patient does not require prophylactic antibiotics. Prior Anticoagulants: The patient has taken no previous anticoagulant or antiplatelet agents. ASA Grade Assessment: III - A patient with severe systemic disease. After reviewing the risks and benefits, the patient was deemed in satisfactory condition to undergo the procedure. The anesthesia plan was to use monitored anesthesia care (MAC). Immediately prior to administration of medications, the patient was re-assessed for adequacy to receive sedatives. The heart rate, respiratory rate, oxygen saturations, blood pressure, adequacy of pulmonary ventilation, and response to care were monitored throughout the procedure. The physical status of the patient was re-assessed after the procedure. The Colonoscope was introduced through the anus and advanced to the cecum, identified by appendiceal orifice and ileocecal valve. The colonoscopy was technically difficult and complex due to poor bowel prep. Successful completion of the procedure was aided by lavage. The patient tolerated the procedure well. The quality of the bowel preparation was fair. Findings: Hemorrhoids were found on perianal exam. A 5 mm polyp was found in the hepatic flexure. The polyp was flat. The polyp was removed with a cold snare. Resection and retrieval were complete. Estimated blood loss was minimal. Three flat polyps were found in the recto-sigmoid colon and sigmoid colon. The polyps were 2 to 10 mm in size. These polyps were removed with a cold snare. Resection and retrieval were complete. Estimated blood loss was minimal. The retroflexed view of the distal rectum and anal verge was normal and showed no anal or rectal abnormalities. Impression: - Preparation of the colon was fair. - Hemorrhoids found on perianal exam. - One 5 mm polyp at the hepatic flexure, removed with a cold snare. Resected and retrieved. - Three 2 to 10 mm polyps at the recto-sigmoid colon and in the sigmoid colon, removed with a cold snare. Resected and retrieved. - The distal rectum and anal verge are normal on retroflexion view. Recommendation: - Discharge patient to home (ambulatory). - Await pathology results. - Repeat colonoscopy in 3 - 5 years for surveillance of multiple polyps. Procedure Code(s): --- Professional --- 86039, Colonoscopy, flexible; with removal of tumor(s), polyp(s), or other lesion(s) by snare technique Diagnosis Code(s): --- Professional --- K63.5, Polyp of colon Z12.11, Encounter for screening for malignant neoplasm of colon K64.9, Unspecified hemorrhoids CPT copyright 2019 [employer]. All rights reserved. The codes documented in this report are preliminary and upon stapling machine operator review may be revised to meet current compliance requirements. Wilfred Hamilton MD Wilfred Hamilton MD 12/20/2020 9:17:37 AM Electronically signed by Wilfred Hamilton MD Number of Addenda: 0 Note Initiated On: 12/20/2020 8:25 AM Estimated Blood Loss: Estimated blood loss was minimal.
[2020-12-20 09:30] VITALS: BP 116/70
[2020-12-20] MEDS ORDERED: propofoL 200 MG/20 ML VIAL As Ordered ONE (09:48)
== END 2020-12-20 09:45 | disposition home or self-care (01) ==
LOC: M OPP 07:38
PROVIDERS: ATTEND Surgery
DX: Z12.11 Encounter for screening for malignant neoplasm of colon (principal); Z80.0 Family history of malignant neoplasm of digestive organs; K63.5 Polyp of colon; K64.8 Other hemorrhoids; Z79.899 Other long term (current) drug therapy; F17.210 Nicotine dependence, cigarettes, uncomplicated

== ENCOUNTER 2021-05-27 06:11 | Emergency (ER) | payer OTHER ==
[~2021-05-27] VITALS: Ht 182.9 cm; Wt 87.4 kg
[~2021-05-27 06:11] MED LIST changes: -LIDOCAINE 2% 100MG/5ML SDV (FOR ANES.) As Ordered ONE; -NS 1,000 ML IV ONE; -propofoL 200 MG/20 ML VIAL As Ordered ONE
[2021-05-27 07:51] VITALS: BP 132/91
[2021-05-27] MEDS ORDERED: LIDOCAINE 5% (LIDODERM) PATCH TD ONE (08:05)
[2021-05-27] MEDS ORDERED: KETOROLAC 30 MG/ML 1ML VIAL IM ONE (08:05)
[2021-05-27] MEDS ORDERED: methocarbamoL 500 MG TAB PO ONE (08:05)
[2021-05-27] MEDS ORDERED: METH-1164 PO (09:14)
[2021-05-27] MEDS ORDERED: KETO10TAB PO (09:14)
[2021-05-27] MEDS ORDERED: **NOTE PATIENT COMMENT** MISC XX SCH (21:00)
== END 2021-05-27 09:29 | disposition home or self-care (01) ==
LOC: M ED 06:11
DX: S22.42XA Multiple fractures of ribs, left side, initial encounter for closed fracture (principal); W19.XXXA Unspecified fall, initial encounter; Y92.018 Other place in single-family (private) house as the place of occurrence of the external cause; G43.909 Migraine, unspecified, not intractable, without status migrainosus; G47.30 Sleep apnea, unspecified; Z99.89 Dependence on other enabling machines and devices; Z79.899 Other long term (current) drug therapy
CPT/HCPCS: 71101; 96372; 99283; J1885

== ENCOUNTER → 2021-06-12 | Outpatient (CLI) | payer OTHER ==
[~2021-06-12] MED LIST changes: +KETO10TAB PO; +METH-1164 PO
[2021-06-12 14:33] LABS: ALBUMIN 3.6 GM/DL (3.2-5.2); ALT/SGPT 29 U/L (12-78); BILIRUBIN,TOTAL 0.3 MG/DL (0.2-1.0); BLOOD UREA NITROGEN 12 MG/DL (7-18); CALCIUM LEVEL 8.8 MG/DL (8.5-10.1); CARBON DIOXIDE LEVEL 24 MEQ/L (21-32); CHLORIDE LEVEL 108 MEQ/L (98-107); CHOLESTEROL LEVEL 179 MG/DL (<200); CREATININE FOR GFR 1.01 MG/DL (0.70-1.30); GLOMERULAR FILTRATION RATE > 60.0 (>56); GLUCOSE, FASTING 117 MG/DL (70-100); HDL CHOLESTEROL 50 MG/DL (>40); LDL CHOLESTEROL 117 MG/DL (<100); NON-HDL-C 129 MG/DL; POTASSIUM SERUM 3.7 MEQ/L (3.5-5.1); SODIUM LEVEL 139 MEQ/L (136-145); TOTAL PROTEIN 6.7 GM/DL (6.4-8.2); TRIGLYCERIDES LEVEL 60 MG/DL (<150)
== END ==
LOC: M WUC 08:43
PROVIDERS: ATTEND Nurse Practitioner Family
DX: Z00.00 Encounter for general adult medical examination without abnormal findings (principal)

== ENCOUNTER → 2021-06-19 | Outpatient (CLI) | payer OTHER ==
[2021-06-20 10:18] LABS: DRVV SCREEN 42.4 SEC; PTT LUPUS TYPE ANTICOAG SCREEN 1.1 (0-1.2)
== END ==
LOC: M PLALAB 10:14
PROVIDERS: ATTEND Psychiatry & Neurology Neurology
DX: I63.9 Cerebral infarction, unspecified (principal)

== ENCOUNTER → 2021-08-15 | Outpatient (CLI) | payer OTHER ==
[2021-08-15 20:50] LABS: VITAMIN B12 LEVEL 941 PG/ML
[2021-08-16 12:06] LABS: DRVV SCREEN 42.5 SEC
[2021-08-16 12:16] LABS: PTT LUPUS TYPE ANTICOAG SCREEN 1.1 (0-1.2)
== END ==
LOC: M WUC 09:57
PROVIDERS: ATTEND Psychiatry & Neurology Neurology
DX: I63.9 Cerebral infarction, unspecified (principal)

== ENCOUNTER → 2022-03-04 | Outpatient (CLI) | payer OTHER ==
[~2022-03-04] MED LIST changes: -ZONI100C17 PO; +ZONI100C67 PO
[2022-03-04 12:57] LABS: BASO % 0.3 % (0.0-1.0); EOS # 0.2 10^3/uL (0.0-0.5); EOS % 2.4 % (0.0-3.0); HEMATOCRIT 47.7 % (42.0-52.0); HEMOGLOBIN 15.2 g/dl (13.5-17.5); LYMPH # 3.1 10^3/uL (1.5-5.0); MEAN CORPUSCULAR HEMOGLOBIN 30.3 pg (27.0-33.0); MEAN CORPUSCULAR HGB CONC 31.9 g/dl (32.0-36.5); MONO # 0.9 10^3/uL (0.0-0.8); NEUTROPHILS # 5.3 10^3/uL (1.5-8.5); NEUTROPHILS % 56.1 % (36.0-66.0); PLATELET COUNT, AUTOMATED 281 10^3/uL (150-450); RED BLOOD COUNT 5.02 10^6/uL (4.30-6.10); WHITE BLOOD COUNT 9.5 10^3/uL (4.0-10.0)
[2022-03-04 13:34] LABS: ALBUMIN 3.9 G/DL (3.2-5.2); ALT/SGPT 22 U/L (7.0-40); BILIRUBIN,TOTAL 0.6 MG/DL (0.3-1.2); BLOOD UREA NITROGEN 17 MG/DL (9-23); CALCIUM LEVEL 8.3 MG/DL (8.5-10.1); CARBON DIOXIDE LEVEL 22 MMOL/L (20-31); CHLORIDE LEVEL 109 MMOL/L (98-107); CREATININE FOR GFR 1.01 MG/DL (0.70-1.30); GLOMERULAR FILTRATION RATE > 60.0 (>56); GLUCOSE, FASTING 98 MG/DL (60-100); POTASSIUM SERUM 4.3 MMOL/L (3.5-5.1); SODIUM LEVEL 141 MMOL/L (136-145); TOTAL PROTEIN 6.4 G/DL (5.7-8.2)
== END ==
LOC: M WUC 10:31
PROVIDERS: ATTEND Registered Nurse
DX: R19.7 Diarrhea, unspecified (principal)

== ENCOUNTER → 2022-03-11 | Outpatient (REF) | payer OTHER | LOC: M LAB REF 09:33 | PROVIDERS: ATTEND Registered Nurse | DX: R19.7 Diarrhea, unspecified (principal) ==

== ENCOUNTER → 2022-07-11 | Outpatient (CLI) | payer OTHER ==
[2022-07-11 13:45] LABS: CHOLESTEROL RISK RATIO 3.07 (<5); HDL CHOLESTEROL 41.9 MG/DL (>40); LDL CHOLESTEROL 76.1 MG/DL (<100); NON-HDL-C 87.1 MG/DL
== END ==
LOC: M PLALAB 09:39
PROVIDERS: ATTEND Nurse Practitioner Family
DX: E78.00 Pure hypercholesterolemia, unspecified (principal)

== ENCOUNTER → 2022-10-08 | Outpatient (CLI) | payer OTHER ==
[2022-10-08 18:32] LABS: BASO # 0.1 10^3/uL (0.0-0.2); BASO % 0.6 % (0.0-1.0); EOS # 0.3 10^3/uL (0.0-0.5); EOS % 3.3 % (0.0-3.0); HEMATOCRIT 47.4 % (42.0-52.0); HEMOGLOBIN 15.7 g/dl (13.5-17.5); LYMPH # 3.9 10^3/uL (1.5-5.0); LYMPH % 40.1 % (24.0-44.0); MEAN CORPUSCULAR HEMOGLOBIN 30.4 pg (27.0-33.0); MEAN CORPUSCULAR HGB CONC 33.1 g/dl (32.0-36.5); MEAN CORPUSCULAR VOLUME 91.9 fl (80.0-96.0); MONO % 10.6 % (2.0-8.0); NEUTROPHILS # 4.4 10^3/uL (1.5-8.5); NEUTROPHILS % 44.8 % (36.0-66.0); PLATELET COUNT, AUTOMATED 287 10^3/uL (150-450); RED BLOOD COUNT 5.16 10^6/uL (4.30-6.10); WHITE BLOOD COUNT 9.8 10^3/uL (4.0-10.0)
[2022-10-08 19:00] LABS: ALBUMIN 3.6 G/DL (3.2-5.2); ALKALINE PHOSPHATASE 154 U/L (46-116); ALT/SGPT 21 U/L (7.0-40); AST/SGOT 10 U/L (<34); BILIRUBIN,TOTAL 0.3 MG/DL (0.3-1.2); BLOOD UREA NITROGEN 14 MG/DL (9-23); CALCIUM LEVEL 9.5 MG/DL (8.5-10.1); CARBON DIOXIDE LEVEL 24 MMOL/L (20-31); CHLORIDE LEVEL 111 MMOL/L (98-107); CREATININE FOR GFR 1.07 MG/DL (0.70-1.30); GLOMERULAR FILTRATION RATE > 60.0 (>56); GLUCOSE, FASTING 76 MG/DL (60-100); POTASSIUM SERUM 3.8 MMOL/L (3.5-5.1); SODIUM LEVEL 139 MMOL/L (136-145); TOTAL PROTEIN 6.3 G/DL (5.7-8.2)
== END ==
LOC: M PLALAB 15:31
PROVIDERS: ATTEND Registered Nurse
DX: Z00.00 Encounter for general adult medical examination without abnormal findings (principal); Z79.899 Other long term (current) drug therapy

== ENCOUNTER → 2023-07-29 | Outpatient (REF) | payer OTHER ==
[2023-07-29 19:03] LABS: BLOOD UREA NITROGEN 15 MG/DL (9-23); CALCIUM LEVEL 8.7 MG/DL (8.5-10.1); CARBON DIOXIDE LEVEL 24 MMOL/L (20-31); CHLORIDE LEVEL 110 MMOL/L (98-107); CREATININE FOR GFR 0.93 MG/DL (0.70-1.30); GLOMERULAR FILTRATION RATE > 60.0 (>56); GLUCOSE, FASTING 95 MG/DL (60-100); POTASSIUM SERUM 3.8 MMOL/L (3.5-5.1); SODIUM LEVEL 140 MMOL/L (136-145)
== END ==
LOC: M LABWUC 16:55
PROVIDERS: ATTEND Internal Medicine Cardiovascular Disease
DX: I10 Essential (primary) hypertension (principal)

== ENCOUNTER → 2025-03-29 | Outpatient (CLI) | payer OTHER ==
[~2025-03-29] MED LIST changes: -FLOM0.4C39 PO; +TAMS-18 PO
[2025-03-29 15:55] LABS: BASO # 0.0 10^3/uL (0.0-0.2); BASO % 0.3 % (0.0-1.0); EOS # 0.2 10^3/uL (0.0-0.5); EOS % 2.2 % (0.0-3.0); LYMPH # 3.3 10^3/uL (1.5-5.0); LYMPH % 35.0 % (24.0-44.0); MONO # 0.9 10^3/uL (0.0-0.8); MONO % 9.2 % (2.0-8.0); NEUTROPHILS # 5.0 10^3/uL (1.5-8.5); NEUTROPHILS % 53.0 % (36.0-66.0); PLATELET COUNT, AUTOMATED 264 10^3/uL (150-450)
[2025-03-29 16:07] LABS: ESTIMATED AVERAGE GLUCOSE 105.0 MG/DL (60-110)
[2025-03-29 16:21] LABS: ALT/SGPT 22.0 U/L (7.0-40); AST/SGOT 20.0 U/L (<34); CALCIUM LEVEL 9.2 MG/DL (8.5-10.1); CARBON DIOXIDE LEVEL 27.0 MMOL/L (20-31); CHLORIDE LEVEL 108.0 MMOL/L (98-107); CHOLESTEROL LEVEL 134.0 MG/DL (<200); CHOLESTEROL RISK RATIO 3.62 (<5); CREATININE FOR GFR 1.08 MG/DL (0.70-1.30); GLOMERULAR FILTRATION RATE 81.0 (>56); LDL CHOLESTEROL 78.6 MG/DL (<100); NON-HDL-C 97.0 MG/DL; POTASSIUM SERUM 4.1 MMOL/L (3.5-5.1); SODIUM LEVEL 140.0 MMOL/L (136-145); TRIGLYCERIDES LEVEL 92.0 MG/DL (<150)
== END ==
LOC: M PLALAB 14:22
PROVIDERS: ATTEND Registered Nurse
DX: I10 Essential (primary) hypertension (principal)